=== PATIENT | male | born 1995 | race Caucasian/White ===

== ENCOUNTER 2020-01-19 04:43 | Inpatient (IN) | payer OTHER ==
[~2020-01-19] VITALS: Ht 185.4 cm; Wt 83.0 kg
--- NOTE | 2020-01-19 04:51 | NUR ---
PT BIBRA [address] C/O LEFT LEG PAIN S/P HITTING IT ON SIDEWALK. PT ADMITS TO DRINKING TONIGHT. PER ASSESSMENT NOTED RIGHT SIDED FACE BUMP. MD AT BEDSIDE FOR EVAL. PT PLACED ON MONITOR AND PULSE OX. VSS. AWAITING FOR MD ORDERS.
--- NOTE | 2020-01-19 05:22 | NUR ---
BROUGHT TO CT
--- NOTE | 2020-01-19 05:42 | NUR ---
called herb for stat read
--- NOTE | 2020-01-19 08:08 | NUR ---
PAGED [facility].
[2020-01-19 08:19] LABS: BASOPHILS % (AUTO) 0.2 % (0.0-2.0); EOSINOPHILS % (AUTO) 0.1 % (0.0-6.0); HEMATOCRIT 46 % (39-51); HEMOGLOBIN 15.2 g/dL (13.5-17.5); LYMPHOCYTES # (AUTO) 1.2 /CMM (0.8-4.8); LYMPHOCYTES % (AUTO) 9.2 % (20.0-44.0); MEAN CORPUSCULAR HGB CONC 33 g/dl (31.0-36.0); MEAN CORPUSCULAR VOLUME 95 fL (80-96); MONOCYTES # (AUTO) 0.9 /CMM (0.1-1.30); MONOCYTES % (AUTO) 7.1 % (2.0-12.0); NEUTROPHILS # (AUTO) 10.6 /CMM (1.8-8.9); NEUTROPHILS % (AUTO) 83.4 % (43.0-81.0); PLATELET COUNT (AUTO) 220 /CMM (150-450); RED BLOOD CELL COUNT(AUTO) 4.86 MIL/uL (4.5-6.0); WHITE BLOOD COUNT (AUTO) 12.7 K/uL (4.3-11.0)
--- NOTE | 2020-01-19 08:40 | NUR ---
PAGED OLMAN LARIOS FOR ORTHO CONSULT. NO ANSWER. LEFT MESSAGE.
--- NOTE | 2020-01-19 08:40 | NUR ---
URINE COLLECTED. SENT TO LAB
[2020-01-19 08:41] LABS: CALCIUM, SERUM 8.9 mg/dL (8.5-10.1); CREATININE 0.9 mg/dL (0.6-1.3); POTASSIUM 3.8 mmol/L (3.5-5.1)
--- NOTE | 2020-01-19 08:53 | NUR ---
CALLED [facility] IF THEY WILL ACCEPT THE PT BACK. PER SEC THEY WILL CALL BACK.
[2020-01-19] MEDS ORDERED: TRAZ-252 PO (10:00)
[2020-01-19] MEDS ORDERED: ARIP10TA17 PO (10:00)
--- NOTE | 2020-01-19 10:41 | NUR ---
CALLED NURSING SUP FOR M/S BED.
--- NOTE | 2020-01-19 10:51 | NUR ---
NURSING SUP GAVE M/S BED 208-1.
[2020-01-19] MEDS ORDERED: ONDANSETRON HCL/PF 4 MG/2 ML VIAL IVP ONE (11:00)
[2020-01-19] MEDS ORDERED: MORPHINE SULFATE INJ 2 MG/ML DISP.SYRIN IV ONE (11:00)
[2020-01-19] MEDS ORDERED: ONDANSETRON HCL/PF 4 MG/2 ML VIAL ONE (11:11)
[2020-01-19] MEDS ORDERED: MORPHINE SULFATE INJ 4 MG/ML DISP.SYRIN ONE (11:12)
--- NOTE | 2020-01-19 11:30 | NUR ---
REPORT GIVEN TO FAUSTINA REYNA FOR ROBERTO CARLOS.
--- NOTE | 2020-01-19 11:32 | NUR ---
CAMACHO FROM [facility]. [phone]
--- NOTE | 2020-01-19 12:10 | NUR ---
MS RN ADMITTING NOTES PT TRANSPORTED TO UNIT VIA GURNEY, AWAKE AT THIS TIME. AOX3. NO SOB NOTED, NO S/S OF ANY ACUTE DISTRESS NOTED. NO C/O PAIN AT THIS TIME.PT ABLE TO MAKE NEEDS KNOWN. RESPIRATIONS ARE EVEN AND UNLABORED WITH EQUAL RISE AND FALL IN CHEST. PT NOTED WITH MULTIPLE SKIN BRUISES. IV ACCESS NOTED IN LAC G#18, INTACT, PATENT AND FLUSHING WELL. LUNGS ARE CLEAR TO AUSCULTATION, ACTIVE BOWEL SOUNDS HEARD IN ALL QUADRANTS. SKIN IS WARM TO TOUCH. PULSES ARE PRESENT BILATERALLY IN BOTH UPPER AND LOWER EXTREMITIES, GOOD CIRCULATION NOTED. CAPILLARY REFILL LESS THAN TWO SECONDS. PICTURES TAKEN AND FILED IN CHART. BELONGINGS ACCOUNTED FOR. SAFETY PRECAUTION IN PLACE AND MAINTAINED AT ALL TIMES. BED IN LOWEST LOCKED POSITION, HOB ELEVATED, SIDE RAILS UP X 2, CALL LIGHT WITHIN REACH. WILL CONTINUE TO MONITOR
[2020-01-19 12:15] VITALS: BP 113/71
[2020-01-19] MEDS ORDERED: ACETAMINOPHEN 325 MG TABLET PO PRN (12:30)
[2020-01-19] MEDS ORDERED: MAG HYDROX/AL HYDROX/SIMETH 30 ML UDC PO PRN (12:30)
[2020-01-19] MEDS ORDERED: Z GUARD REMEDY 2 OZ OINT TP PRN (12:30)
[2020-01-19] MEDS ORDERED: ONDANSETRON HCL/PF 4 MG/2 ML VIAL IVP PRN (12:30)
[2020-01-19] MEDS ORDERED: MAGNESIUM HYDROXIDE 30 ML UDC PO PRN (12:30)
--- NOTE | 2020-01-19 14:00 | NUR ---
PT WITH VTE SCORE OF 5. DOCTOR MADE AWARE. NO NEW ORDER AT THIS TIME. WILL CONTINUE TO MONITOR AND FOLLOW UP
[2020-01-19] MEDS: IV NS 0.9% 1,000 ML IV PRN (15:22)
[2020-01-19] MEDS: HYDROCODONE/APAP 5/325MG TABLET PO PRN ×2 (16:41→22:03)
--- NOTE | 2020-01-19 16:42 | NUR ---
PT C/O SHARP LEFT LEG PAIN OF 10/10. PT NOTED GUARDING, GRIMACING AND MOANING. VS WNL. PER PT REQUEST, NORCO 5-325MG ADMINISTERED AT THIS TIME PER ORDER. WILL CONTINUE TO MONITOR
--- NOTE | 2020-01-19 17:28 | NUR ---
PT WITH VTE SCORE OF 5, DOCTOR PHOENIX MADE AWARE. PER DOCTOR GARIBAY, CONSIDER VTE AFTER ORTHO EVAL. WILL CONTINUE TO MONITOR
[2020-01-19] MEDS ORDERED: INFLUENZA VACCINE 2020-21 0.5 ML DISP.SYRIN IM ONE (17:30)
--- NOTE | 2020-01-19 17:30 | NUR ---
PT REQUESTED FOR NICOTINE PATCH. DOCTOR PHOENIX MADE AWARE. RECEIVED ORDER FOR NICODERM 21MG TP DAILY. ORDERS CARRIED OUT. WILL CONTINUE TO MONITOR
--- NOTE | 2020-01-19 17:51 | NUR ---
FLU VACCINE ADMINISTERED AT THIS TIME. WILL CONTINUE TO MONITOR
--- NOTE | 2020-01-19 18:57 | NUR ---
FRAME WIRER CLOSING NOTES PT AWAKE IN BED AT THIS. PT REMAINED STABLE THROUGHOUT SHIFT. PT KEPT CLEAN AND DRY. ALL CARE, NEEDS, MEDICATIONS AND TREATMENT ADMINISTERED ANTICIPATED PER PROTOCOL. PAIN MANAGEMENT ADMINISTERED PER ORDER. SAFETY PRECAUTION IN PLACE AND MAINTAINED AT ALL TIMES. BED IN LOWEST LOCKED POSITION, HOB ELEVATED, SIDE RAILS UP X 2, CALL LIGHT WITHIN REACH. WILL ENDORSE TO PACK MASTER NURSE FOR ROBERTO CARLOS
[2020-01-19 20:00] VITALS: BP 120/69
--- NOTE | 2020-01-19 20:30 | NUR ---
rn notes/epic paged: pt pulled out iv access twice, consistently trying to get out of bed, education provided that he needs to keep left hip and leg area immobilized as he has fracture. pt still wanted to leave, trying to get out of bed. appears to be having withdrawal. no prn meds for withdrawal. paged epic md implementation lead awaiting for call back.
[2020-01-19] MEDS ORDERED: ZIPRASIDONE MESYLATE 20 MG/VIAL VIAL IM PRN (21:30)
[2020-01-19] MEDS ORDERED: LORAZEPAM 1 MG TABLET PO PRN (21:30)
--- NOTE | 2020-01-19 22:10 | NUR ---
prn norco: pt c/o left hip and left leg pain 10/04 requesting for pain medication, prn norco 5/325 mg tab po administered to pt at this time. education provided to pt about his condition, as to why he is being ADMITTED, WHAT SHOULD BE THE EXPECTATION AND PLAN OF CARE, educate about immobilizing and avoiding pressure on left hip area, move only using log roll technique with help of staging technician and rn. pt was then offered for snacks, but he refused, stated he just wanted to rest and sleep. urinal within reach, call light within reach, bed in lowest position, fall precaution engaged. iv reinserted on left fa using g 20, good blood return noted, connected back to ivf as ordered.
--- NOTE | 2020-01-19 23:02 | NUR ---
prn ativan: pt c/o anxiety, prn ativan administered at this time.
[2020-01-20] MEDS ORDERED: ZIPRASIDONE MESYLATE 20 MG/VIAL VIAL IM ONE (01:22)
[2020-01-20 01:40] VITALS: BP 134/73
--- NOTE | 2020-01-20 01:53 | NUR ---
prn geodon: pt very agitated, restless, sweating, consistently pulling out iv access and trying to get out of bed, thrown urinal on the floor, appears to be having withdrawal symptoms from alcohol, pt urine drug screen positive, admitted to using meths, crack, weeds. prn geodon 5mg im administered with help of porfirio bright. vs taken and recorded prior to administering the medication. fall precaution engaged. will continue monitoring behavior.
[2020-01-20] MEDS: IV NS 0.9% 1,000 ML IV PRN ×2 (05:36→19:21)
[2020-01-20 06:26] LABS: BASOPHILS % (AUTO) 0.1 % (0.0-2.0); EOSINOPHILS % (AUTO) 1.4 % (0.0-6.0); HEMATOCRIT 42 % (39-51); LYMPHOCYTES # (AUTO) 1.2 /CMM (0.8-4.8); LYMPHOCYTES % (AUTO) 16.8 % (20.0-44.0); MEAN CORPUSCULAR HGB CONC 34 g/dl (31.0-36.0); MEAN CORPUSCULAR VOLUME 95 fL (80-96); MONOCYTES # (AUTO) 0.8 /CMM (0.1-1.30); MONOCYTES % (AUTO) 11.1 % (2.0-12.0); NEUTROPHILS % (AUTO) 70.6 % (43.0-81.0); PLATELET COUNT (AUTO) 183 /CMM (150-450)
--- NOTE | 2020-01-20 07:07 | NUR ---
end of shift report: pt remains a/o x3, with on and off periods of withdrawal symtpoms, reorientation provided. multiple iv reinsertion made as pt consistently pulling out iv access. refused bed bath. prn meds administered as ordered. pt still refusing to use hospital gown. pending pcr result. awaiting ortho eval. cm and social svc consult. labs ordered in am. pending med recon. remains on covid precaution, n95 and face sheild utilized. iv access remains patent and flushing well, infusing with ns at 75ml/hr, no s/s of iv infiltration noted. vs remains stable, needs attended. safety precautions for fall remains engaged, call light in reach, will endorse to day rn for jef.
--- NOTE | 2020-01-20 07:20 | NUR ---
MS RN NOTES PATIENT IN BED ALERT ORIENTED X 3. NO ACUTE DISTRESS NOTED. BREATHING UNLABORED. NO SOB NOTED. IV ACCESS PATENT AND INTACT, NO REDNESS, NO SWELLING NOTED.SAFETY MEASURES IN PLACE. CALL LIGHT WITHIN REACH. WILL CONTINUE TO MONITOR ACCORDINGLY.
[2020-01-20 07:21] LABS: ALBUMIN 3.6 g/dL (3.4-5.0); BILIRUBIN,DIRECT 0.2 mg/dL (0.0-0.2); CALCIUM, SERUM 8.7 mg/dL (8.5-10.1); CREATININE 0.9 mg/dL (0.6-1.3); MAGNESIUM 2.4 mg/dL (1.8-2.4); PHOSPHORUS 4.8 mg/dL (2.5-4.9); POTASSIUM 3.8 mmol/L (3.5-5.1)
[2020-01-20 08:00] VITALS: BP 113/69
[2020-01-20] MEDS: NICOTINE PATCH (21MG) 21 MG PATCH.TD24 TD SCH (08:49)
[2020-01-20] MEDS: FOLIC ACID 1 MG TABLET PO SCH (08:49)
[2020-01-20] MEDS: THIAMINE HCL 100 MG TABLET PO SCH (08:50)
[2020-01-20] MEDS: MULTIVITAMINS,THERAGRAN 1 UDTAB TABLET PO SCH (08:50)
[2020-01-20 16:00] VITALS: BP 101/60
[2020-01-20] MEDS: HYDROCODONE/APAP 5/325MG TABLET PO PRN ×2 (16:16→21:18)
--- NOTE | 2020-01-20 19:00 | NUR ---
MS RN NOTES PATIENT IN BED ALERT ORIENTED X 3. NO ACUTE DISTRESS NOTED. BREATHING UNLABORED. NO SOB NOTED. IV ACCESS PATENT AND INTACT, NO REDNESS, NO SWELLING NOTED. NEEDS ATTENDED AND ANTICIPATED. KEPT CLEAN DRY AND COMFORTABLE. SAFETY MEASURES IN PLACE. CALL LIGHT WITHIN REACH. WILL ENDORSE TO NIGHT NURSE FOR CONTINUITY OF CARE.
[2020-01-20 20:00] VITALS: BP 127/70
--- NOTE | 2020-01-20 20:00 | NUR ---
MS RN NOTE PT IN BED A/O X 4, NO SOB, NO DISTRESS OR DISCOMFORT NOTED. DENIES PAIN AT THIS TIME. IVF NS INFUSING AT 75 ML/HR, NO S/S OF INFILTRATION NOTED. SIDE RAILS UP X 3 AND CALL LIGHT WITHIN REACH. VSS. CONTINUE TO MONITOR.
--- NOTE | 2020-01-20 21:22 | NUR ---
MS RN NOTE PT C/O PAIN IN LEFT HIP 09/04 NORCO 1 TAB PO GIVEN. CONTINUE TO MONITOR.
--- NOTE | 2020-01-20 22:22 | NUR ---
MS RN NOTE PAIN SUBSIDED.05/07. PT FALLING ASLEEP. NO DISTRESS OR DISCOMFORT NOTED.
[2020-01-21] MEDS: HYDROCODONE/APAP 5/325MG TABLET PO PRN ×4 (04:21→22:37)
--- NOTE | 2020-01-21 06:34 | NUR ---
MS RN NOTE PT IN BED ASLEEP, EASILY AROUSABLE NO DISTRESS OR DISOCOMFORT NOTED. DENIES PAIN AT THIS TIME. IVF INFUSING WELL, NO S/S OF INFILTRATION NOTED. ALL NEEDS ATTENDED. WILL ENDORSE TO DAY SHIFT NURSE FOR CONTINUE TO CARE.
[2020-01-21 08:00] VITALS: BP 104/59
--- NOTE | 2020-01-21 08:00 | NUR ---
MS RN OPENING NOTES Received Patient resting in bed. A/O x 4. VS stable with no acute distress. Breathing even and unlabored on room air with no respiratory distress. Patient stated pain level of 7/10 on left hip. Will intervene as ordered. 20g PIV on LFA clean, intact, patent and flushing well with NS infusing at 75ml/hr. Safety precautions in place. Bed locked and set to lowest position with side rails x 2 up. All needs rendered at this time. Call light within reach. Will continue to monitor.
[2020-01-21] MEDS: FOLIC ACID 1 MG TABLET PO SCH (08:15)
[2020-01-21] MEDS: MULTIVITAMINS,THERAGRAN 1 UDTAB TABLET PO SCH (08:15)
[2020-01-21] MEDS: NICOTINE PATCH (21MG) 21 MG PATCH.TD24 TD SCH (08:16)
[2020-01-21] MEDS: THIAMINE HCL 100 MG TABLET PO SCH (08:17)
--- NOTE | 2020-01-21 09:36 | NUR ---
WOUND CARE CONSULT: REVIEWED CHART, NURSING DOCUMENTATION AND PHOTOS WHICH INDICATE DRY ABRASIONS AND SKIN DISCOLORATIONS. PT IS INDEPENDENT WITH BED MOBILITY. WILL SEE PRN.
[2020-01-21] MEDS ORDERED: GABA-532 PO (10:25)
[2020-01-21] MEDS ORDERED: ARIP10TA9 PO (10:25)
--- NOTE | 2020-01-21 10:25 | NUR ---
m/s bar host: med recon nurse verify other home medications and provided 2 meds (abilify and gabapentin); pt denies other medications via ext med hx. primary nurse made aware.
[2020-01-21] MEDS ORDERED: GABA600T12 PO (10:28)
[2020-01-21] MEDS: IV NS 0.9% 1,000 ML IV PRN (11:12)
--- NOTE | 2020-01-21 11:27 | NUR ---
Project Director spoke with the patient via patient hospital phone. Patient would like this SW to follow-up on a calls patient made to [facility] . SW to follow-up with patient's request.
[2020-01-21 16:00] VITALS: BP 127/71
[2020-01-21] MEDS: HYDROCODONE/APAP 10/325MG TABLET PO PRN (18:30)
--- NOTE | 2020-01-21 19:56 | NUR ---
MS RN CLOSING NOTES Patient resting in bed. A/O x 4. VS stable with no acute distress. Breathing even and unlabored on room air with no respiratory distress. Patient stated pain level of 10/10 on left hip. Administered Dustin 10-325mg PO at 1830. 20g PIV on LFA intact, patent and flushing well with NS infusing at 75ml/hr. Safety precautions in place. Bed locked and set to lowest position with side rails x 2 up. All needs rendered at this time. Call light within reach. Will endorse plan of care to oncoming shift.
--- NOTE | 2020-01-21 19:56 | NUR ---
MS RN OPENING NOTES RECEIVED PATIENT RESTING IN BED COMFORTABLY; A/OX4, BREATHING EVEN AND UNLABORED; TOLERATING ROOM AIR WELL; NO SOB NOTED; SATTING 99%; NO DISTRESS NOTED AT THIS TIME; PATIENT ABLE TO MAKE NEEDS KNOWN; LFA #20 INTACT AND PATENT, FLUSHING WELL; TOLERATING IVF WELL; ISOLATION PRECAUTIONS MAINTAINED; SAFETY PRECAUTIONS IMPLEMENTED; BED LOCKED IN LOW POSITION; SIDE RAILSX2; CALL LIGHT WITHIN REACH; WILL CONT TO MONITOR PATIENT
[2020-01-21 20:00] VITALS: BP 119/70
--- NOTE | 2020-01-21 21:46 | NUR ---
MS RN NOTES COVID RESULT NEGATIVE; NURSING FOREST PATHOLOGY ASSOCIATE PROFESSOR MADE AWARE; PER FOREST PATHOLOGY ASSOCIATE PROFESSOR, TRANSFER PATIENT TO ROOM 112-1; SPOKE WITH FAUSTINA ROBLES, MG AWARE OF TRANSFER; WILL TRANSFER PATIENT AND ENDORSE ROBERTO CARLOS TO FAUSTINA ACUÑA;
--- NOTE | 2020-01-21 22:58 | NUR ---
RN MS NOTES, PATIENT TRANSFERRED FROM MS SECOND FLOOR IN COMPANY OF 2 NURSES, ENDORSED BY MILLA WEEMS, BEDSIDE REPORT RECEIVED AT BEDSIDE, PATIENT AT ROOM AIR, BREATHING EVEN AND UNLABORED, NO S/S OF ANY DISTRESS, BUT C/O PAIN IN LEFT HIP, WILL GIVE PAIN MEDICATION.
--- NOTE | 2020-01-21 23:07 | NUR ---
Received report from FAUSTINA Connor for ROBERTO CARLOS.
--- NOTE | 2020-01-21 23:07 | NUR ---
RN MS NOTES, ENDORSED PATIENT TO FAUSTINA HEMPHILL FOR CONTINUATION OF CARE, PATIENT IN STABLE CONDITION, WITH NEGATIVE COVID 19 RESULTS, WILL HAVE ORTHO CONSULT TOMORROW.
[2020-01-22] MEDS: IV NS 0.9% 1,000 ML IV PRN ×2 (02:26→22:01)
[2020-01-22 04:00] VITALS: BP 106/61
--- NOTE | 2020-01-22 06:51 | NUR ---
RN CLOSING NOTES: Pt remains stable throughout shift. Remains on room air, breathing even and unlabored. No SOB or resp distress noted throughout shift. LFA #20 patent and infusing NS at 75ml/hr. Dressing c/d/i. Safety measures in place. Will endorse to oncoming nurse for ROBERTO CARLOS.
--- NOTE | 2020-01-22 07:30 | NUR ---
NURSES NOTES Patient received in stable condition. Reports pain, request pain medication. No other needs at this time per patient. Bed locked in low position, 2 side rails up for safety. Call light/belongings w/ in reach.
[2020-01-22] MEDS: HYDROCODONE/APAP 10/325MG TABLET PO PRN ×2 (07:57→21:46)
[2020-01-22] MEDS: MULTIVITAMINS,THERAGRAN 1 UDTAB TABLET PO SCH (09:52)
[2020-01-22] MEDS: NICOTINE PATCH (21MG) 21 MG PATCH.TD24 TD SCH (09:53)
[2020-01-22] MEDS: FOLIC ACID 1 MG TABLET PO SCH (09:53)
[2020-01-22] MEDS: THIAMINE HCL 100 MG TABLET PO SCH (09:53)
[2020-01-22] MEDS ORDERED: IBUP-1955 PO (10:06)
--- NOTE | 2020-01-22 10:07 | NUR ---
ZOEY followed up with [facility] . Per Rosa, patient is accepted back to their facility and this ZOEY can coordinate with Steven . Per Steven, Steven will orange picker patient once physical therapy clears patient for discharge.
--- NOTE | 2020-01-22 10:56 | NUR ---
PATIENT PENDING DISCHARGE PER PT NEED ARU,DR. GARIBAY AND CASE MANAGEMENT NOTIFIED.
--- NOTE | 2020-01-22 11:43 | NUR ---
ZOEY provided information to case management as patient has been accepted to [facility] [id number] . Steven will like to be notified about patient discharge to help arrange transportation. SW to remain available for all needs regarding this patient.
[2020-01-22 12:21] VITALS: BP 113/67
--- NOTE | 2020-01-22 12:28 | NUR ---
kiet dean spoke with patient and agreed to wait for his wheelchair to be dalivered around 6 to 7pm then discharge to sober living.
--- NOTE | 2020-01-22 12:30 | NUR ---
NURSES NOTES Patient aggitated, requesting IV removed and possible leave AMA. Sp w/ charge nurse Melissa and assisted pt to speak to CM. Patient understands is pending wheelchair for discharge to sober living/rehab facility. Agrees to wait until wheelchair received.
--- NOTE | 2020-01-22 12:58 | NUR ---
per patient and cm sober living will arrange for lyft.
--- NOTE | 2020-01-22 13:02 | NUR ---
patient refused discharge photo taken.
[2020-01-22] MEDS: HYDROCODONE/APAP 5/325MG TABLET PO PRN (13:34)
--- NOTE | 2020-01-22 19:45 | NUR ---
RN OPENING NOTE PATIENT RETURNED BACK [facility] TO [facility] FOR MED SURG MONITORING BECAUSE THEY NOT ACCEPTING PATIENT WHEELCHAIR BOUND,CALLED [employer] INSULATION SETTER OF EPIC SPOKE WITH DR ZENAIDA RDZ HE ORDERED CONTINUE THE SAME PREVIOUS ORDER AND HAVE THE DAY TIME PROVIDER AND FOLLOW UP WITH CASE MANAGEMENT TOMORROW FOR PLACEMENT NOTED AND CARRIED OUT.PATIENT IS ALERT ORIENTED X4 VERBALLY RESPONSIVE NO SOB NOT ACUTE DISTRESS NOTED HE HAS HISTORY OF LEFT HIP FRACTURE,AND WHEELCHAIR BOUND,KEEP CALL LIGHT WITHIN REACH,BED IN LOW POSITON AND LOCKED CONTINUE TO MONITOR.
[2020-01-22 20:00] VITALS: BP 124/63
[2020-01-23 04:00] VITALS: BP 125/65
--- NOTE | 2020-01-23 07:01 | NUR ---
RN CLOSING NOTE PATIENT REMAINS ALERT ORIENTED X4 VERBALLY RESPONSIVE NO SOB NOT ACUTE DISTRESS NOTED,BREATHING IS EVEN AND UNLABORED ON IV HYDRATION, NORMAL SALINE,0.9% 75CC/HR IV SITE IS ON RIGHT FOREARM 20G INTACT PATENT BED IN LOW POSITION,AND LOCKED KEPT CALL LIGHT WITHIN REACH,ENDORSE NEXT COMING SHIFT FOR CONTINUATION OF CARE.
--- NOTE | 2020-01-23 07:30 | NUR ---
Patient is calm and cooperative.On room air saturation above 95%. Breathing unlabored and even. Denies pain at this time. Will continue to monitor
[2020-01-23 08:00] VITALS: BP 108/63
[2020-01-23] MEDS: THIAMINE HCL 100 MG TABLET PO SCH (08:12)
[2020-01-23] MEDS: NICOTINE PATCH (21MG) 21 MG PATCH.TD24 TD SCH (08:12)
[2020-01-23] MEDS: FOLIC ACID 1 MG TABLET PO SCH (08:12)
[2020-01-23] MEDS: MULTIVITAMINS,THERAGRAN 1 UDTAB TABLET PO SCH (08:12)
--- NOTE | 2020-01-23 11:15 | NUR ---
rn case mgr made aware of plcement issue,pending discharge.
[2020-01-23] MEDS: HYDROCODONE/APAP 10/325MG TABLET PO PRN ×2 (11:22→19:55)
[2020-01-23] MEDS: HYDROCODONE/APAP 5/325MG TABLET PO PRN (14:33)
--- NOTE | 2020-01-23 14:37 | NUR ---
folllowup with cm still pending placement.
[2020-01-23] MEDS: IV NS 0.9% 1,000 ML IV PRN (15:15)
--- NOTE | 2020-01-23 18:49 | NUR ---
Patient remains on room air, no distress noted .PRN pain medication was provided as directed. Patient awaiting for a placement. IV fluid running as ordered. Patient kept comfortable. All needs attended. Will endorse to next shift for ROBERTO CARLOS
--- NOTE | 2020-01-23 19:30 | NUR ---
MS1 RN NOTES RECEIVED ON BED A/O C4,BREATHING EASY,NO SOB,IVF NS AT 75ML/HR RATE INFUSING VIA IV PUMP ON THE RIGHT FOREARM,SITE PATENT,NO S/S OF INFILTRATION NOTED.C/P PAIN 8/10 ON PAIN SCALE,WILL MEDICATE.CALL LIGHT IN REACH,NEEDS ANTICIPATED.
--- NOTE | 2020-01-23 19:55 | NUR ---
MS RN NOTES C/O LEFT HIP PAIN 8/10 ON PAIN SCALE,NORCO 10/325MG,1 TAB PO GIVEN ORDERED FOR SEVERE PAIN.
[2020-01-23 22:00] VITALS: BP 119/60
[2020-01-24 04:00] VITALS: BP 108/57
--- NOTE | 2020-01-24 06:04 | NUR ---
MS RN NOTES NO SIGNIFICANT CHANGE IN STATUS,ABLE TO SLEEP WITH PAIN MANAGEMENT.D/C PLAN TO SNF FOR REHAB AWAITING INSURANCE APPROVAL,AND IF CAN AMBULATE.IN NO ACUTE DISTRESS.
--- NOTE | 2020-01-24 08:00 | NUR ---
MG RN Opening Notes: Pt resting in bed. A/Ox4, pt vitals signs stable, breathing even and unlabored on RA. Pt states pain 6/10, pain med will be administered as ordered. 20g PIV on RFA intact, patent and flushing well with NS infusing at 75ml/hr. Pt safety precautions in place: side rails up x2, bed in lowest position, pt belongings and call delgado within reach. Will continue to monitor.
[2020-01-24] MEDS: NICOTINE PATCH (21MG) 21 MG PATCH.TD24 TD SCH (09:08)
[2020-01-24] MEDS: HYDROCODONE/APAP 10/325MG TABLET PO PRN ×3 (09:10→19:10)
[2020-01-24] MEDS: FOLIC ACID 1 MG TABLET PO SCH (09:10)
[2020-01-24] MEDS: THIAMINE HCL 100 MG TABLET PO SCH (09:10)
[2020-01-24] MEDS: MULTIVITAMINS,THERAGRAN 1 UDTAB TABLET PO SCH (09:11)
[2020-01-24] MEDS: IV NS 0.9% 1,000 ML IV PRN ×2 (09:15→23:04)
[2020-01-24 11:18] VITALS: BP 119/65
[2020-01-24] MEDS: HYDROCODONE/APAP 5/325MG TABLET PO PRN ×2 (13:00→21:05)
--- NOTE | 2020-01-24 18:44 | NUR ---
MG RN CLOSING Notes: Pt resting in bed. A/Ox4, pt vitals signs stable, breathing even and unlabored on RA. Pt states tolerable pain 4/10, administered [place] 5/325 PO at 1715 as ordered. Will endorse to oncoming shift. 20g PIV on RFA intact, patent and flushing well with NS infusing at 75ml/hr. Pt safety precautions in place: side rails up x2, bed in lowest position, pt call delgado within reach. Will endorse to oncoming shift.
--- NOTE | 2020-01-24 19:30 | NUR ---
RN NOTE RECEIVED PT AWAKE AND ALERT/OREINTED X 4 IN BED IN SEMI SIMEON'S POSITION. NO COMPLAINTS OF PAIN OR DISCOMFORT AT THIS TIME. CURRENTLY ON ROOM AIR AND WITHOUT RESPIRATORY DISTRESS. IV ON RIGHT FOREARM FLUSHED AND PATENT. WITH NS @ 75ML/HOUR RUNNING ORDERED WITHOUT COMPLICATIONS AT SITE. PLAN OF CARE DISCUSSED WITH PT. CALL LIGHT WITHIN REACH, SAFETY MEASURES IN PLACE, WILL MONITOR.
--- NOTE | 2020-01-24 19:45 | NUR ---
RN NOTE PT REFUSED TO HAVE DVT PUMPS PLACED DESPITE EXPLANATION OF RISKS AND BENEFITS.
[2020-01-24 20:00] VITALS: BP 114/61
--- NOTE | 2020-01-24 22:00 | NUR ---
RN NOTE NOTED PT TO NOT HAVE BOWEL MOVEMENT FOR 4 DAYS. ABDOMEN NOT DISTENDED,. OFFERED PT PRN MILK OF MAGNESIA PO BUT PT REQUESTED IT TO HAVE IT IN THE MORNING. WILL ADMINISTER THEN.
[2020-01-25] VITALS: BP 105/59
--- NOTE | 2020-01-25 01:00 | NUR ---
RN NOTE PT SLEEPING COMFORTABLY IN BED BUT EASILY AROUSABLE, NO SIGNS OF PAIN OR DISCOMFORT. IV FLUIDS RUNNING ORDERED.
[2020-01-25 04:00] VITALS: BP 108/63
--- NOTE | 2020-01-25 04:00 | NUR ---
RN NOTE PT REFUSED TO HAVE PARTIAL BED BATH DONE. PARTIAL LINEN AND GOWN CHANGE DONE.
--- NOTE | 2020-01-25 07:07 | NUR ---
RN NOTE PT AWAKE AND ALERT IN BED. NO ACUTE CHANGES OBSERVED OVERNIGHT. NO COMPLAINTS OF PAIN OR DISCOMFORT AT THIS TIME. ON ROOM AIR. NS @ 75ML/HOUR RUNNING ORDERED ON RIGHT FOREARM. NO SIGNS OF COMPLICATIONS NOTED AT SITE. ALL NEEDS MET AND ATTENDED TO, WILL ENDORSE TO MORNING RN FOR ROBERTO CARLOS.
[2020-01-25 07:51] VITALS: BP 114/61
--- NOTE | 2020-01-25 07:55 | NUR ---
RN OPENING NOTE RECEIVED PATIENT IN BED, PATIENT ALERT AND AWAKE X3-4, ON ROOM AIR, RESPIRATION UNLABORED, DENIES PAIN, R FA 20G IV, NS 75ML/HR RUNNING, INFUSING WELL, SITE CLEAR, UNABLE TO AMBULATE AT THIS TIME, REGULAR DIET, USES URINAL, PLAN OF CARE DISCUSSED, VERBALIZED UNDERSTANDING, SAFETY MEASURES IN PLACE, BED LOW AND LOCKED, SIDE RAILS UP X2, CALL LIGHT WITHIN REACH, AWAITING PLACEMENT PER CASE MANAGEMENT, WILL CONTINUE TO MONITOR.
[2020-01-25] MEDS: FOLIC ACID 1 MG TABLET PO SCH (08:09)
[2020-01-25] MEDS: NICOTINE PATCH (21MG) 21 MG PATCH.TD24 TD SCH (08:09)
[2020-01-25] MEDS: THIAMINE HCL 100 MG TABLET PO SCH (08:09)
[2020-01-25] MEDS: MULTIVITAMINS,THERAGRAN 1 UDTAB TABLET PO SCH (08:10)
[2020-01-25 12:00] VITALS: BP 126/61
--- NOTE | 2020-01-25 12:00 | NUR ---
RN NOTES RECEIVED REPORT FROM DIGNA WEEMS. PT IS AWAKE, A/O X4. VERBALLY RESPONSIVE. IV SITE AT RFA #20 INTACT, PATENT AND FLUSHED. PT IN STABLE CONDITION. WILL CONTINUE TO MONITOR
--- NOTE | 2020-01-25 12:06 | NUR ---
RN NOTES REPORT GIVEN TO THAD WEEMS FOR ROBERTO CARLOS.
[2020-01-25] MEDS: HYDROCODONE/APAP 5/325MG TABLET PO PRN ×3 (12:33→20:30)
[2020-01-25] MEDS: IV NS 0.9% 1,000 ML IV PRN (13:52)
--- NOTE | 2020-01-25 19:31 | NUR ---
RN CLOSING NOTE PATIENT RESTING IN BED, AWAKE, A/O X3-4. ON ROOM AIR, SATURATION @98%. NO SOB. NO PAIN REPORTED AT THIS TIME. R FA #20 INTACT AND PATENT. NS RUNNING @75MLS/HR, INFUSING WELL. USES CRUTCHES IN AMBULATING. REGULAR DIET. SAFETY MEASURES OBSERVED. BED LOW AND LOCKED, SIDE RAILS UP X2. CALL LIGHT WITHIN REACH. AWAITING PLACEMENT PER CASE MANAGEMENT. WILL ENDORSE TO NIGHT NURSE FOR ROBERTO CARLOS.
[2020-01-25 20:00] VITALS: BP 121/67
[2020-01-26 04:00] VITALS: BP 112/60
[2020-01-26] MEDS: IV NS 0.9% 1,000 ML IV PRN (06:06)
--- NOTE | 2020-01-26 07:10 | NUR ---
RN OPENING NOTE RECEIVED PT IN BED, A/O X3-4. ON ROOM AIR SATURATING @95%. NO SOB. NO PAIN REPORTED AT THIS TIME. R FA #20 INTACT AND PATENT. IV NS RUNNING @75ML/HR, INFUSING WELL. REGULAR DIET, USES CRUTCHES IN AMBULATING. BRP. SAFETY MEASURES IN PLACE. BED LOCKED AND AT LOWEST POSITION WITH SIDE RAILS UP X2. CALL LIGHT WITHIN REACH. AWAITING PLACEMENT PER CASE MANAGEMENT. WILL CONTINUE TO MONITOR.
[2020-01-26] MEDS: MULTIVITAMINS,THERAGRAN 1 UDTAB TABLET PO SCH (08:14)
[2020-01-26] MEDS: THIAMINE HCL 100 MG TABLET PO SCH (08:14)
[2020-01-26] MEDS: FOLIC ACID 1 MG TABLET PO SCH (08:14)
[2020-01-26] MEDS: NICOTINE PATCH (21MG) 21 MG PATCH.TD24 TD SCH (08:15)
--- NOTE | 2020-01-26 09:45 | NUR ---
seen and evaluated by dr. godfrey need to ff. up with human services case managerfire manager.spoke with sondra dean she will followup.
[2020-01-26] MEDS: HYDROCODONE/APAP 5/325MG TABLET PO PRN (10:33)
--- NOTE | 2020-01-26 14:00 | NUR ---
DISCHARGE NOTES PT IN STABLE CONDITION. VS ARE WNL. ACCOMPANIED TO LOBBY PER WHEELCHAIR. PT REFUSED TO HAVE PHOTOS TAKEN FOR THE WOUNDS.
== END 2020-01-26 14:04 | disposition home or self-care (01) | DRG 917 ==
LOC: ER 04:45 → MEDSG2 11:15 → MEDSG1 01-21 22:03 → UNDODISIN 01-22 17:18
PROVIDERS: ADMIT Internal Medicine; ATTEND Internal Medicine
DX: T40.601A Poisoning by unspecified narcotics, accidental (unintentional), initial encounter (principal); S32.402A Unspecified fracture of left acetabulum, initial encounter for closed fracture; G92 Toxic encephalopathy; S32.592A Other specified fracture of left pubis, initial encounter for closed fracture; W19.XXXA Unspecified fall, initial encounter; Y90.3 Blood alcohol level of 60-79 mg/100 ml; T42.4X1A Poisoning by benzodiazepines, accidental (unintentional), initial encounter; T40.7X1A Poisoning by cannabis (derivatives), accidental (unintentional), initial encounter; T51.91XA Toxic effect of unspecified alcohol, accidental (unintentional), initial encounter; F10.129 Alcohol abuse with intoxication, unspecified; Y92.9 Unspecified place or not applicable
CPT/HCPCS: 36415; 70450-TC; 72192-TC; 73502; 80048-TC; 80076-TC; 83735-TC; 84100-TC; 85025-TC; 87081-TC; 97112-TC; 97116-TC; 97530-TC; G0378; G0480; J2270; J2405; J3486; J7030; Q2036; U0003